=== PATIENT | female | born 1980 | race Caucasian/White ===

== ENCOUNTER 2017-10-28 19:31 | Emergency (ER) | payer OTHER ==
[~2017-10-28] VITALS: Ht 152.4 cm; Wt 133.1 kg
[~2017-10-28 19:31] MED LIST: SEROQUEL200 MG PO
[2017-10-28] MEDS ORDERED: KEFLEX500 MG PO (20:55)
[2017-10-28 21:20] VITALS: BP 113/67
== END 2017-10-28 21:22 | disposition home or self-care (01) ==
LOC: EME 19:31
DX: M67.432 Ganglion, left wrist (principal); F17.200 Nicotine dependence, unspecified, uncomplicated
CPT/HCPCS: 73110